=== PATIENT | female | born 1995 | race Caucasian/White ===

== ENCOUNTER 2016-06-10 20:27 | Emergency (ER) | payer SELFPAY ==
[~2016-06-10] VITALS: Ht 162.6 cm; Wt 77.0 kg
[2016-06-10 20:52] LABS: BASOPHILS % (AUTO) 0.1 % (0.0-2.0); EOSINOPHILS % (AUTO) 0.3 % (1.0-6.0); HEMATOCRIT 48.8 % (36-46); HEMOGLOBIN 16.1 g/dL (12.0-16.0); LYMPHOCYTES # (AUTO) 1.2 K/uL (1.0-4.8); LYMPHOCYTES % (AUTO) 6.5 % (22.0-44.0); MEAN CORPUSCULAR HEMOGLOBIN 27.8 pg (26.0-34.0); MEAN CORPUSCULAR VOLUME 84 fL (80-100); MONOCYTES # (AUTO) 0.5 K/uL (0.1-1.0); MONOCYTES % (AUTO) 2.5 % (2.0-9.0); NEUTROPHILS # (AUTO) 17.4 K/uL (1.8-7.7); PLATELET COUNT (AUTO) 286 K/uL (150-450); RED BLOOD CELL COUNT(AUTO) 5.81 MIL/uL (4.00-5.20); RED CELL DISTRIBUTION WIDTH 13.4 % (11.5-14.5); WHITE BLOOD COUNT (AUTO) 19.3 K/uL (4.5-11.0)
[2016-06-10 20:54] LABS: APPEARANCE,URINE CLOUDY (CLEAR); GLUCOSE, URINE (UA) NEGATIVE (NEGATIVE); KETONES,URINE TRACE mg/dL (NEGATIVE); LEUKOCYTE ESTERASE ,URINE TRACE (NEGATIVE); OCCULT BLOOD,URINE NEGATIVE (NEGATIVE); PROTEIN,URINE POS 1+ (NEGATIVE)
[2016-06-10 20:57] LABS: NEUTROPHILS % (AUTO) 90.6 % (40.0-70.0)
[2016-06-10 20:57] LABS: ADD UA MICROSCOPIC YES
[2016-06-10 21:06] LABS: ANION GAP 9 mmol/L (8-16); CALCIUM, TOTAL 9.6 mg/dL (8.8-10.5); CARBON DIOXIDE 27 mmol/L (22-29); CHLORIDE 101 mmol/L (98-107); CREATININE 0.76 mg/dL (0.60-1.30); GLOMERULAR FILTR. RATE CALC > 60 mL/min (>60); POTASSIUM 3.9 mmol/L (3.5-5.1); SODIUM SERUM 137 mmol/L (136-145); UREA NITROGEN, BLOOD 21 mg/dL (7-18)
[2016-06-10 21:08] LABS: RBC MORPHOLOGY COMMENT NORMAL RBC MORPH
[2016-06-10 21:13] LABS: ALANINE AMINOTRANSFERASE 102 U/L (12-78); ALBUMIN 4.6 g/dL (3.4-5.0); ASPARTATE AMINOTRANSFERASE 31 U/L (15-37); BILIRUBIN,TOTAL 1.3 mg/dL (0.1-1.0)
[2016-06-10] MEDS ORDERED: ONDANSETRON HCL 4 MG/2 ML VIAL IVP ONE (21:30)
[2016-06-10] MEDS ORDERED: MORPHINE SULFATE 4 MG/ML SYRINGE IVP ONE (21:30)
[2016-06-10] MEDS ORDERED: BARIUM SULFATE 0.1% SUSPENSION 450 ML BOTTLE PO ONE (21:30)
[2016-06-10] MEDS ORDERED: SODIUM CHLORIDE 0.9% 1,000 ML IV ONE (21:30)
[2016-06-10 21:36] LABS: SQUAMOUS EPITHELIAL CELL,UR Many /LPF (None Seen)
[2016-06-10 21:38] LABS: RBC,URINE 0-2 /HPF (0-2)
[2016-06-10] MEDS ORDERED: IOVERSOL 350 MG/ML 100 ML VIAL ONE (21:39)
[2016-06-10] MEDS ORDERED: SODIUM CHLORIDE 0.9% 100 ML ONE (21:39)
[2016-06-10 23:11] LABS: GLUCOSE COMMENT 1 Doctor Notified; GLUCOSE,POINT OF CARE 82 MG/DL (70-110)
[2016-06-10 23:46] LABS: PROTHROMBIN TIME 10.7 SEC (9.4-11.6)
[2016-06-11 00:49] VITALS: BP 116/85
[2016-06-11] MEDS ORDERED: ONDANSETRON HCL 4 MG/2 ML VIAL IVP ONE (01:15)
== END 2016-06-11 01:32 | disposition home or self-care (01) ==
LOC: EMS 20:29
DX: R10.84 Generalized abdominal pain (principal); R11.2 Nausea with vomiting, unspecified; R19.7 Diarrhea, unspecified
CPT/HCPCS: 36415; 74177; 80053; 81001; 82948; 82962; 83690; 84703; 85025; 85610; 96361; 96374; 96375; 96376; 99285; J2270; J2405 ×2; J7030; J7050; Q9967; Z7610

== ENCOUNTER 2016-09-22 19:41 | Emergency (ER) | payer SELFPAY ==
[~2016-09-22] VITALS: Ht 162.6 cm; Wt 73.0 kg
[2016-09-22 22:49] VITALS: BP 123/66
== END 2016-09-22 22:50 | disposition home or self-care (01) ==
LOC: EMS 19:42
DX: H61.23 Impacted cerumen, bilateral (principal); R11.0 Nausea
CPT/HCPCS: 99282

== ENCOUNTER 2016-09-28 16:21 | Emergency (ER) | payer SELFPAY ==
[~2016-09-28] VITALS: Ht 162.6 cm; Wt 68.1 kg
[2016-09-28 16:27] VITALS: BP 120/81
== END 2016-09-28 20:14 | disposition left against medical advice (07) ==
LOC: EMS 16:22
DX: M79.672 Pain in left foot (principal); W10.9XXA Fall (on) (from) unspecified stairs and steps, initial encounter; Y93.89 Activity, other specified; Y92.89 Other specified places as the place of occurrence of the external cause; Y99.8 Other external cause status; Z53.21 Procedure and treatment not carried out due to patient leaving prior to being seen by health care provider
CPT/HCPCS: 99281